=== PATIENT | female | born 1950 | race Caucasian/White ===

== ENCOUNTER 2019-06-11 07:26 | Day surgery (SDC) | payer MEDICARE, BC ==
[~2019-06-11] VITALS: Ht 157.5 cm; Wt 72.6 kg
[2019-06-11 07:44] LABS: HEMATOCRIT 42.3 % (36.0-48.0); HEMOGLOBIN 14.8 g/dL (12-16); MCH 27.2 pg (26.0-34.0); MCV 77.6 fL (80.0-100.0); MEAN PLATELET VOLUME 8.9 fL (7.4-10.4); RBC 5.45 10x6/uL (4.00-5.40); RDW 15.9 % (11.5-14.5); WBC 4.6 10x3/uL (4.8-10.8)
[2019-06-11] MEDS ORDERED: MERIBIN5 MG PO (08:18)
[2019-06-11] MEDS ORDERED: VITAMIN B-1250 MCG PO (08:18)
[2019-06-11] MEDS ORDERED: CENTRUM SILVER1 EAC3 PO (08:18)
[2019-06-11] MEDS ORDERED: PROBIOTIC250 MG PO (08:19)
[2019-06-11] MEDS ORDERED: NEXIUM20 MG PO (08:19)
[2019-06-11 08:27] VITALS: BP 129/71; Ht 157.5 cm; Wt 72.6 kg
--- NOTE | 2019-06-15 16:30 | HP ---
PATIENT: ADAM VILLAREAL MEDICAL RECORD: [id number] ACCOUNT: [id number] LOCATION:[facility] : 52 ADMISSION DATE: 06/11/19 PCP: ROBERT QUINTERO MD HISTORY AND PHYSICAL EXAMINATION HISTORY OF PRESENT ILLNESS: Sunita is a 69-year-old female last year she had a left cervical node biopsy, which showed T-cell lymphoma. This was treated by Dr. Guzmán who apparently cleared the disease, but she has redeveloped a left cervical adenopathy. She is being admitted for left cervical node biopsy. PAST MEDICAL HISTORY: Includes reflux and T-cell lymphoma. PAST SURGICAL HISTORY: Includes hysterectomy, cholecystectomy, carpal tunnel surgery, lymph node removal in 2018. CURRENT MEDICATIONS: Include Nexium. ALLERGIES: TRAMADOL. PHYSICAL EXAMINATION: GENERAL: She is healthy-appearing, developmentally normal. She has a normal voice. FACE: Normal, symmetric, no lesions. EYES: Sclerae and conjunctivae are normal. EARS: Canals and TMs appear normal. NOSE: No mass, polyps, or drainage. ORAL CAVITY AND OROPHARYNX: No trismus. Tongue protrudes midline. NECK: There are no masses. NECK: She has a left IJ port just over the clavicle. She has got some posterior adenopathy and feels like a node under the upper sternocleidomastoid level 2. It is hard to say for sure, but the posterior adenopathy is firm and fairly attached to the overlying musculature feels like. CHEST: Clear. CARDIOVASCULAR: Regular rate and rhythm, no murmur. EXTREMITIES: Normal. IMPRESSION: History of T-cell lymphoma just last year. Left cervical adenopathy. PLAN: Excision of left cervical nodes, possible multiple. TRANSINT:[id number] Voice Confirmation ID: [id number] DOCUMENT ID: [id number] ANALISA SCOTT MD at 1630 CC: [id number] DICTATION DATE: 06/09/191812 TUBE WINDER: 06/09/191946 [facility] 06/11/19 [facility] [address] [place] [address]
--- NOTE | 2019-06-15 16:30 | OP ---
PATIENT NAME: ADAM VILLAREAL MEDICAL RECORD: [id number] :52 LOCATION:[facility].OPS ADMISSION DATE: SURGEON: SIDDHARTHA KEARNEY MD DATE OF OPERATION: 06/11/2019 PREOPERATIVE DIAGNOSES: Left cervical adenopathy, history of T-cell lymphoma. POSTOPERATIVE DIAGNOSES: Left cervical adenopathy, history of T-cell lymphoma. PROCEDURE: Left cervical node biopsy. SURGEON: Siddhartha Kearney MD ANESTHESIA: General LMA. COMPLICATIONS: None. DISPOSITION: Recovery stable. FINDINGS: I took out a solitary 2 cm left jugulodigastric node. Path was consistent with diffuse lymphoma on frozen. It was sent fresh for the pathologist to handle directly as needed. PROCEDURE IN DETAIL: She was brought to the operating room and placed in supine position, sedated and intubated by anesthesia. Head was turned to the right and the left neck was palpated carefully to find the easiest largest lymph node to remove. She had some posterior adenopathy that was fairly small and fixed, but she had some very large jugulodigastric node, so I chose one of those. The skin crease was injected with 0.5 cc of 1% lidocaine with 1:100,000 epinephrine after prepping with alcohol, then she was prepped with Betadine and draped in the usual sterile fashion. Incision was made anterior to the sternocleidomastoid muscle. This was taken down through the platysma. Blunt dissection with a tonsil clamp easily exposed the lymph node, which was dissected out. A nice white clean lymph node was dissected out easily. Bleeding was controlled with cautery and very minimal. The node was sent for path fresh and for frozen to make sure it was handled appropriately for flow, etc. The wound was cleaned up, irrigated. No bleeding. It was completely clean and dry. The platysma layer was closed with interrupted 4-0 Vicryl. Skin was closed with 6-0 Prolene. Steri-Strips and Mastisol were applied. She was awakened, extubated, and transported to recovery in good condition. No complications. TRANSINT:[id number] Voice Confirmation ID: [id number] DOCUMENT ID: [id number] SIDDHARTHA KEARNEY MD at 1630 CC: [id number] DICTATION DATE: 06/11/19 1303 [employer] COMMUNICATIONS: 06/11/19 1330 [facility]P [facility] 06/11/19 [facility] [address] [place] [address]
== END 2019-06-11 13:50 | disposition home or self-care (01) ==
LOC: D.OPS 07:26 → D.PAN 09:45 → D.OPS 09:45
PROVIDERS: Anesthesiology; ATTEND Otolaryngology
DX: C84.41 Peripheral T-cell lymphoma, not elsewhere classified, lymph nodes of head, face, and neck (principal); C86.5 Angioimmunoblastic T-cell lymphoma; Z01.812 Encounter for preprocedural laboratory examination